=== PATIENT | female | born 1990 | race African-American/Black ===

== ENCOUNTER 2016-12-28 03:17 | Emergency (ER) | payer MEDICAID ==
[~2016-12-28] VITALS: Ht 160 cm; Wt 75.0 kg
[~2016-12-28 03:17] MED LIST: PRED20 PO
[2016-12-28 03:20] VITALS: BP 133/88; PULSE 93; RESP 16; TEMP 98.3; O2SAT 95
--- NOTE | 2016-12-28 03:51 | PD ---
HPI Chief Complaint: ENT Complaint Time Seen by Provider: 03:46 Travel History International Travel<30 days: No Contact w/Intl Traveler<30days: No Traveled to known affect area: No History of Present Illness HPI 26-year-old black female presents to emergency department with complains of sore throat and blisters in her mouth for the past 3 days. She states that she is concerned that she may have contracted an infection after performing oral intercourse this past week. She also states that she had strained her right shoulder lifting her child up earlier this weekend as well. She states that she had thrashed about and pulled her right shoulder. The patient does admit to subjective fever and chills, sore throat, slight congestion and cough. No nausea vomiting. No bowel pain or diarrhea. No dysuria or frequency. No rashes or lesions. PFSH Past Medical History Blood Disorders: No Anxiety: No Depression: No Cardiovascular Problems: No Diminished Hearing: No Genitourinary: No Herniated Disk: Yes (X2) Musculoskeletal: No Neurologic: No Psychiatric: No Respiratory: No Immunizations Current: Yes Sickle Cell Disease: No Tetanus Vaccination: < 5 Years ?: Not LMP: CONTROL : 6 Para: 2 Miscarriage: 2 : 2 Past Surgical History Section: Yes Other Surgery: Yes (abortions) Social History Alcohol Use: Yes (social) Tobacco Use: Yes (1/2 pack per day) Substance Use: No Allergies-Medications (Allergen,Severity, Reaction): Coded Allergies: No Known Allergies (Verified , 12/28/16) Reported Meds & Prescriptions Reported Meds & Active Scripts Active Diclofenac Sodium DR (Diclofenac Sodium) 50 Mg Tabdr 50 Mg PO TID Review of Systems Except as stated in HPI: all other systems reviewed are Neg Physical Exam Narrative GENERAL: Well-developed, well-nourished in no acute distress. Nontoxic appearing. HEAD: Normocephalic, atraumatic. EYES: Pupils equal round and reactive. Extraocular motions intact. No scleral icterus. No injection or drainage. ENT: TMs clear without erythema. The external auditory canals clear. Nose: clear . Posterior pharynx is mildly erythematous and moist. No tonsillar edema or exudate. Patient has a few small superficial ulcerations on the buccal mucosa of the mouth. Uvula midline. Airway patent. NECK: Trachea midline.Supple, nontender, moves head freely. No central bony tenderness or spasm. CARDIOVASCULAR: Regular rate and rhythm without murmurs, gallops, or rubs. RESPIRATORY: Clear to auscultation. Breath sounds equal bilaterally. No wheezes , rales, or rhonchi. GASTROINTESTINAL: Abdomen soft, non-tender, nondistended. No hepato-splenomegaly , or palpable masses. No guarding. EXTREMITIES: No clubbing, cyanosis, or edema. Complains of tenderness in the right shoulder. Decreased active range of motion. Full passive range of motion. Negative drop test, no effusion, or edema noted. No pain in the elbow , wrist or hand. Median/ulnar/renal nerves intact. BACK: Nontender without deformity or crepitance. No flank tenderness. Data Data Last Documented VS Vital Signs Date Time Temp Pulse Resp B/P Pulse Ox O2 Delivery O2 Flow Rate FiO2 12/28/16 03:20 98.3 93 16 133/88 95 Room Air Orders Group A Rapid Strep Screen (12/28/16 03:32) Strep Culture (Group A) (12/28/16 03:35) Shoulder, Limited(2vws) (12/28/16 04:00) Ketorolac Inj (Toradol Inj) (12/28/16 04:00) MDM Medical Decision Making Medical Screen Exam Complete: Yes Emergency Medical Condition: Yes Medical Record Reviewed: Yes Interpretation(s) Right shoulder: Negative for acute bony injury Rapid strep: Negative Differential Diagnosis MDM: High Differential diagnoses: Strep throat, viral pharyngitis, mono, right shoulder strain, tendinitis Narrative Course X-ray of the shoulder is negative. Rapid strep is negative. Patient is given diclofenac for pain. This is URI, right shoulder strain Diagnosis Primary Impression: URI (upper respiratory infection) Qualified Code: J06.9 - Viral upper respiratory tract infection Additional Impression: Right shoulder strain Qualified Code: S46.911A - Right shoulder strain, initial encounter Patient Instructions: General Instructions Additional Instructions: Rest. Force fluids. Saltwater gargles. Diclofenac. Chloraseptic [place] Cepastat lozenge. Follow-up with a primary care doctor in one week. Return to the ER if any problems. Med/Other Pt SpecificInfo: Prescription(s) given Scripts Diclofenac Sodium DR 50 Mg Tabdr50 Mg PO TID #21 TAB Prov:Hailey Mancuso MD 12/28/16 Disposition: 01 DISCHARGE HOME Condition: Stable Wade Draek Dec 28, 2016 03:51
[2016-12-28] MEDS ORDERED: DICL50TA3 PO (03:52)
[2016-12-28] MEDS ORDERED: KETOROLAC TROMETHAMINE 60 MG/2 ML (IM) VIAL IM ONE (04:00)
--- NOTE | 2016-12-28 04:28 | RADRPT ---
EXAM DATE/TIME: 12/28/2016 04:14 [facility] COMPARISON: No previous studies available for comparison. INDICATIONS : Right shoulder pain. MEDICAL HISTORY : None. SURGICAL HISTORY : None. ENCOUNTER: Initial ACUITY: 1 day PAIN SCORE: 7/10 LOCATION: Right shoulder FINDINGS: Two view examination of the right shoulder demonstrates no evidence of fracture or dislocation. The glenohumeral and acromioclavicular joints are maintained. Bony mineralization is normal. CONCLUSION: Normal 2 view radiographic appearance of the right shoulder. James Mattson MD on December 28, 2016 at 4:26 Board Certified Radiologist. This report was verified electronically.
== END 2016-12-28 04:42 | disposition home or self-care (01) ==
LOC: NEPB 03:17
DX: J06.9 Acute upper respiratory infection, unspecified (principal); S46.911A Strain of unspecified muscle, fascia and tendon at shoulder and upper arm level, right arm, initial encounter; F17.210 Nicotine dependence, cigarettes, uncomplicated; X50.1XXA Overexertion from prolonged static or awkward postures, initial encounter; Y93.F2 Activity, caregiving, lifting
CPT/HCPCS: 73030; 87081; 87880; 96372; 99283; J1885

== ENCOUNTER 2018-01-25 12:40 | Emergency (ER) | payer MEDICAID ==
[~2018-01-25] VITALS: Ht 160 cm; Wt 74.0 kg
[~2018-01-25 12:40] MED LIST changes: +DICL50TA3 PO; -PRED20 PO
[2018-01-25 13:06] VITALS: BP 104/54; PULSE 95; RESP 18; TEMP 98.3; O2SAT 98
[2018-01-25] MEDS ORDERED: ZITHTAB PO (13:20)
--- NOTE | 2018-01-25 13:21 | PD ---
HPI Chief Complaint: Cold / Flu Symptoms Time Seen by Provider: 13:10 Travel History International Travel<30 days: No Contact w/Intl Traveler<30days: No Traveled to known affect area: No History of Present Illness HPI 27-year-old female presents to the emergency department for evaluation of productive cough, congestion for one week. Patient states she has had intermittent fevers. She did check her fever on Tuesday and she states she had a 101 fever. She has had some intermittent subjective fever since. No fever at this time. Patient reports being 3 months . She denies any issues with the . No vaginal bleeding or discharge. She follows with a direct entry midwife. Patient denies having any chronic medical problems or taking any prescribed medications. No exacerbating or alleviating factors. Moderate severity. PFSH Past Medical History Blood Disorders: No Anxiety: No Depression: No Cardiovascular Problems: No Diminished Hearing: No Genitourinary: No Herniated Disk: Yes (X2) Musculoskeletal: No Neurologic: No Psychiatric: No Respiratory: No Immunizations Current: Yes Sickle Cell Disease: No : 6 Para: 2 Miscarriage: 2 : 2 Past Surgical History Section: Yes Other Surgery: Yes (abortions) Social History Alcohol Use: Yes (social) Tobacco Use: Yes (1/2 pack per day) Substance Use: No Allergies-Medications (Allergen,Severity, Reaction): Coded Allergies: No Known Allergies (Verified Adverse Reaction, Unknown, 01/25/18) Reported Meds & Prescriptions Reported Meds & Active Scripts Active Diclofenac Sodium DR (Diclofenac Sodium) 50 Mg Tabdr 50 Mg PO TID Review of Systems Except as stated in HPI: all other systems reviewed are Neg Physical Exam Narrative GENERAL: Well-nourished, well-developed female patient, ambulatory. Afebrile. SKIN: Focused skin assessment warm/dry. HEAD: Normocephalic. Atraumatic. EYES: No scleral icterus. No injection or drainage. NECK: Supple, trachea midline. No JVD or lymphadenopathy. CARDIOVASCULAR: Regular rate and rhythm without murmurs, gallops, or rubs. RESPIRATORY: Breath sounds equal bilaterally. No accessory muscle use. Lungs sounds are clear to auscultation. GASTROINTESTINAL: Abdomen soft, non-tender, nondistended. MUSCULOSKELETAL: No cyanosis, or edema. BACK: Nontender without obvious deformity. No CVA tenderness. Data Data Last Documented VS Vital Signs Date Time Temp Pulse Resp B/P (MAP) Pulse Ox O2 Delivery O2 Flow Rate FiO2 01/25/18 13:06 98.3 95 18 104/54 (71) 98 MDM Medical Decision Making Medical Screen Exam Complete: Yes Emergency Medical Condition: Yes Medical Record Reviewed: Yes Differential Diagnosis URI versus bronchitis versus pneumonia Narrative Course 27-year-old female presents to the emergency department for evaluation of cold symptoms for one week. She does appear well and exam. Patient states she was taking ibuprofen at home. She is instructed to discontinue taking ibuprofen due to . She is to take Tylenol every 4 hours as needed, use saline nasal sprays. I'll give her prescription for azithromycin for URI. She is to follow-up with her primary care physician. She is return here for any acute worsening of symptoms. The patient was discharged in stable condition with instructions, including return instructions and follow up instructions. Diagnosis Primary Impression: URI (upper respiratory infection) Qualified Codes: J06.9 - Acute upper respiratory infection, unspecified Referrals: Primary Care Physician call for appointment Patient Instructions: General Instructions, Upper Respiratory Infection (ED) Departure Forms: Tests/Procedures, Work Release Enter return to work date: Jan 27, 2018 Additional Instructions: [id number] Tylenol every 4 hours as needed. Use saline nasal sprays for nasal congestion. Take antibiotic as directed until gone. Follow-up with your primary care physician. Return to the emergency department for any acute worsening of symptoms. Med/Other Pt SpecificInfo: Prescription(s) given Scripts Azithromycin (Zithromax Z-Hermelindo) 250 Mg Dspk 250 MG PO DIRECTED for Infection, #1 DSPK 0 Refills 500 MG (2 tabs) day 1, then 1 tab days 2-5. Prov: Nati Bhardwaj 01/25/18 Disposition: 01 DISCHARGE HOME Condition: Stable Nati Bhardwaj Jan 25, 2018 13:21
== END 2018-01-25 13:30 | disposition home or self-care (01) ==
LOC: NEPK 12:40
DX: O98.911 Unspecified maternal infectious and parasitic disease complicating pregnancy, first trimester (principal); J06.9 Acute upper respiratory infection, unspecified; F17.210 Nicotine dependence, cigarettes, uncomplicated
CPT/HCPCS: 99283

== ENCOUNTER 2018-04-26 08:58 | Emergency (ER) | payer SELFPAY ==
[~2018-04-26] VITALS: Ht 160 cm; Wt 72.6 kg
[~2018-04-26 08:58] MED LIST changes: -DICL50TA3 PO; +ZITHTAB PO
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
[2018-04-26] MEDS ORDERED: ACETAMINOPHEN 325 MG TAB PO ONE (10:30)
== END 2018-04-26 11:28 | disposition home or self-care (01) ==
LOC: HOBED 08:58
DX: O26.893 Other specified pregnancy related conditions, third trimester (principal); R51 Headache; R10.9 Unspecified abdominal pain; O99.333 Smoking (tobacco) complicating pregnancy, third trimester; F17.210 Nicotine dependence, cigarettes, uncomplicated; O99.323 Drug use complicating pregnancy, third trimester; F12.90 Cannabis use, unspecified, uncomplicated; Z3A.30 30 weeks gestation of pregnancy
CPT/HCPCS: 99284

== ENCOUNTER 2018-07-01 07:19 | Inpatient (IN) ==
[2018-07-01] MEDS ORDERED: Sod Chloride 0.9% Inj 1,000 ML IV.CONT PRN (08:05)
[2018-07-01] MEDS ORDERED: Naloxone Inj 0.4 MG/ML Vial IV.PUSH PRN ×2 (08:05→14:36)
[2018-07-01] MEDS ORDERED: fentaNYL Citrate Inj 100 MCG/2 ML Ampul IV.PUSH PRN ×2 (08:05)
[2018-07-01] MEDS ORDERED: Sodium Chlor 0.9% Inj 500 ML IV.SIG PRN (08:05)
[2018-07-01] MEDS ORDERED: Oxytocin 30 Units/500ml Premix 30 UNITS/500 ML BAG IV.SIG ONE (08:05)
--- NOTE | 2018-07-01 08:13 | P.HPOB ---
History of Present Illness Primary Care Physician: YADIRA Jen Helio Chief Complaint: Contractions spotting History of Present Illness: Patient is 28-year-old black female previous at 39 weeks presents complaining of contractions since early this morning and some spotting. The NST is reactive and she is jose a every 2-3 minutes. She is also dilated on admission 6-7 cm 80% and -1 station with a bulging bag and vertex presentation, she was scheduled for repeat next Tuesday but does not she is advanced dilation in active labor now encouraged for delivery Weeks Gestation:: 39 Para: 2 : 3 Review of Systems Constitutional: Denies anorexia, Denies body ache(s), Denies chills, Denies daytime sleepiness, Denies excessive sweating, Denies fatigue, Denies fever(s), Denies headache(s), Denies increased appetite, Denies lack of energy, Denies malaise, Denies night sweats, Denies weakness, Denies weight gain, Denies weight loss, Denies other Cardiovascular: Denies bluish discoloration of hand/feet, Denies chest pain, Denies chest pain at rest, Denies chest pain with activity, Denies excessive sweating, Denies fainting, Denies fast heart rate, Denies foot swelling, Denies generalized swelling, Denies irregular heart rhythm, Denies leg pain with activity, Denies leg sores, Denies leg swelling, Denies lightheadedness, Denies radiating jaw, neck or arm pain, Denies rapid, pounding, or irregular heartbeat , Denies shortness of breath, Denies shortness of breath with activity, Denies shortness of breath when lying down, Denies shortness of breath causing sudden awakening, Denies slow heart rate, Denies other Respiratory: Denies change in phlegm color, Denies chest congestion, Denies cough, Denies coughing up blood, Denies excessive phlegm production, Denies pain on inspiration, Denies pain with cough, Denies shortness of breath, Denies shortness of breath with activity, Denies snoring, Denies stridor, Denies wheezing, Denies other Gastrointestinal: Denies abdominal pain, Denies belching, Denies black, tarry stools, Denies bloating, Denies bright, red blood in stools, Denies change in bowel habits, Denies constant urge to pass stool, Denies change in stools, Denies coffee ground vomit, Denies constipation, Denies cramping, Denies difficulty swallowing, Denies excessive passing of gas, Denies feeling full early, Denies heartburn, Denies incontinent of stools, Denies loose stools, Denies nausea, Denies pain with swallowing, Denies vomiting, Denies vomiting blood, Denies other Genitourinary: Denies abnormal periods, Denies abnormal vaginal bleeding, Denies absent period, Denies bleeding between periods, Denies blood in urine, Denies difficulty starting urination, Denies difficulty urinating, Denies dribbling after urination, Denies frequent nighttime urination, Denies genital itching, Denies genital lesions, Denies heavy periods, Denies hot flashes, Denies light periods, Denies nipple discharge, Denies painful intercourse, Denies painful periods, Denies painful urination, Denies pelvic pain, Denies prolapse symptoms, Denies sexual problems, Denies side pain, Denies urinary incontinence, Denies urinary urgency, Denies vaginal discharge, Denies vaginal dryness, Denies vaginal odor, Denies vaginal itching, Denies other Neurologic: Denies abnormal hearing, Denies abnormal movements, Denies abnormal speech, Denies abnormal walking, Denies behavioral changes, Denies burning sensations, Denies confusion, Denies dizziness, Denies fainting, Denies frequent falls, Denies headache(s), Denies lack of coordination, Denies localized weakness, Denies loss of vision, Denies memory loss, Denies numbness, Denies other visual disturbances, Denies radiating pain, Denies restless legs, Denies convulsions, Denies seizure-like activity, Denies sensory deficit, Denies tingling, Denies tingling/numbness/burning sensations, Denies tremor(s), Denies unsteadiness, Denies weakness, Denies other PMFSH - History History Provided By: Patient - Medical History Medical History: Medical History (Last Updated 06/30/18 @ 06:36 by Job Denton MD) HSV (herpes simplex virus) anogenital infection - Surgical History Surgical History: Surgical History (Last Updated 06/30/18 @ 06:36 by Job Denton MD) History of delivery - Tobacco History Second Hand Smoke Exposure: Yes Tobacco Use In Past 30 Days: Yes Smoking Status: Current every day smoker Tobacco Type: Cigarettes - Alcohol History How Often Do You Have a Drink Containing Alcohol: Never - Substance Use History Substance History: Active Abuse (cannabis) - Travel History Recent Travel in the [place] Within the Last 8 Weeks: No Recent Travel Out of the Country Within the Last 8 Weeks: No - Immunization History Tetanus Immunization: <5 Years Hx Influenza Vaccine This Season: No Medications and Allergies Active Medications: Active Medications Citric Acid/Sodium Citrate (Sodium Citrate/Citric Acid Liq) 30 ml PO ENVIRONMENTAL HEALTH PHYSICIAN [facility] Stop: 07/05/18 08:14 Fentanyl Citrate (Fentanyl Inj) 100 mcg IV.PUSH Q1H PRN PRN Reason: PAIN SCALE 6 TO 10 Fentanyl Citrate (Fentanyl Inj) 50 mcg IV.PUSH Q1H PRN PRN Reason: Pain Scale 3 - 5 Lactated Ringer's (Lr 1000 Ml Inj) 1,000 mls @ 125 mls/hr IV.CONT .Q8H SAUL Lactated Ringer's (Lr 1000 Ml Inj) 1,000 mls @ 3,000 mls/hr IV.SIG UNSCH PRN PRN Reason: compromise or epidural Sodium Chloride (Ns Inj) 500 mls @ 1,000 mls/hr IV.SIG UNSCH PRN PRN Reason: SEE LABEL COMMENTS Sodium Chloride (Ns Inj) 1,000 mls @ 100 mls/hr IV.CONT .Q10H PRN PRN Reason: SEE LABEL COMMENTS Oxytocin (Pitocin 30 Units/Ns 500 Ml Premix) 30 units in 500 mls @ 999 mls/hr IV.SIG BOLUS ONE Stop: 07/01/18 08:35 Lidocaine HCl (Xylocaine 1% Inj) 0.1 ml I-DERMAL PRN PRN PRN Reason: For IV start Stop: 07/04/18 08:04 Lidocaine HCl (Xylocaine 1% Inj) 10 ml INFILTRATN PRN PRN PRN Reason: For episiotomy repair Stop: 07/03/18 08:04 Mineral Oil (Muri-Lube Oil) 10 ml TOPICAL PRN PRN PRN Reason: PRN perineal massage Naloxone HCl (Narcan Inj) 0.1 mg IV.PUSH Q2M PRN PRN Reason: for opiate reversal Allergies Allergy/AdvReac Type Severity Reaction Status Date / Time No Known Allergies Allergy Verified 07/01/18 07:30 Exam Vital signs: Vital Signs 07/01/18 07:33 Temperature 97.8 F Pulse Rate 95 H Blood Pressure 129/89 Intake & Output 06/30/18 07/01/18 07/01/18 18:59 06:59 18:59 Weight 68 kg - Constitutional mild distress - Routine HEENT Exam Head: Present: normocephalic, atraumatic Eye: Present: PERRL - Routine Neck Exam Present: supple, full ROM - Routine Respiratory Exam Present: CTA bilaterally - Routine Cardiovascular Exam Present: RRR - Routine Exam Comments: Cervix is 6-7/80/-1/cephalic with bulging membranes - Routine Neurological Exam Present: alert, oriented X3, CN II-XII intact Caprini VTE Risk Assessment Caprini VTE Risk Assessment: No/Low Risk (score <= 1) Caprini Risk Assessment Model: Point Value = 1 Point Value = 2 Point Value = 3 Point Value = 5 Age 41-60 Minor surgery BMI > 25 kg/m2 Swollen legs Varicose veins or History of unexplained or recurrent spontaneous Oral contraceptives or hormone replacement Sepsis (< 1 month) Serious lung disease, including pneumonia (< 1 month) Abnormal pulmonary function Acute myocardial infarction Congestive heart failure (< 1 month) History of inflammatory bowel disease Medical patient at bed rest Age 61-74 Arthroscopic surgery Major open surgery (> 45 min) Laparoscopic surgery (> 45 min) Malignancy Confined to bed (> 72 hours) Immobilizing plaster cast Central venous access Age >= 75 History of VTE Family history of VTE Factor V Leiden Prothrombin [id number] Lupus anticoagulant Anticardiolipin antibodies Elevated serum homocysteine Heparin-induced thrombocytopenia Other congenital or acquired thrombophilia Stroke (< 1 month) Elective arthroplasty Hip, pelvis, or leg fracture Acute spinal cord injury (< 1 month) Prophylaxis Regimen: Total Risk Factor Score Risk Level Prophylaxis Regimen 0-1 Low Early ambulation 2 Moderate Order ONE of the following: *Sequential Compression Device (SCD) *Heparin 5000 units SQ BID 3-4 Higher Order ONE of the following medications: *Heparin 5000 units SQ TID *Enoxaparin/Lovenox 40 mg SQ daily (WT < 150 kg, CrCl > 30 mL/min) *Enoxaparin/Lovenox 30 mg SQ daily (WT < 150 kg, CrCl > 10-29 mL/min) *Enoxaparin/Lovenox 30 mg SQ BID (WT < 150 kg, CrCl > 30 mL/min) AND/OR *Sequential Compression Device (SCD) 5 or more Highest Order ONE of the following medications: *Heparin 5000 units SQ TID (Preferred with Epidurals) *Enoxaparin/Lovenox 40 mg SQ daily (WT < 150 kg, CrCl > 30 mL/min) *Enoxaparin/Lovenox 30 mg SQ daily (WT < 150 kg, CrCl > 10-29 mL/min) *Enoxaparin/Lovenox 30 mg SQ BID (WT < 150 kg, CrCl > 30 mL/min) AND *Sequential Compression Device (SCD) Assessment and Plan - Diagnosis (1) Previous delivery affecting Code(s): O34.219 - Maternal care for unspecified type scar from previous delivery Status: Acute (2) Uterine contractions during Code(s): O62.2 - Other uterine inertia Status: Acute - Plan Patient presenting at term in active labor. She has a history of section with one of her children vaginal delivery with the other. Now at almost 7 cm dilated would recommend that she continue laboring and deliver vaginally with epidural, she understands risks and benefits of delivery and opting to proceed
[2018-07-01] MEDS ORDERED: Citric Acid/Sodium Citrate Liq 30 ML UDC PO SCH (08:15)
[2018-07-01] MEDS ORDERED: fentaNYL 2MCG-Bupiv 0.125% Epi 150 ML EPIDURAL ONE (08:26)
[2018-07-01 08:38] LABS: Eos # (Auto) 0.1 th/mm3 (0.0-0.4); Hematocrit 30.7 % (35.0-46.0); Hemoglobin 10.4 gm/dL (11.6-15.3); Lymph # (Auto) 1.4 th/mm3 (1.0-4.8); Lymph % (Auto) 11.8 % (9.0-44.0); Mean Corpuscular Hemoglobin 28.6 pg (27.0-34.0); Mean Corpuscular Volume 84.1 fL (80.0-100.0); Mean Platelet Volume 11.4 fL (7.0-11.0); Mono # (Auto) 0.7 th/mm3 (0.0-0.9); Mono % (Auto) 6.3 % (0.0-8.0); Neut # (Auto) 9.6 th/mm3 (1.8-7.7); Neut % (Auto) 80.9 % (16.0-70.0); Platelet Count 103 th/mm3 (150-450); Red Blood Count 3.65 mil/mm3 (4.00-5.30); Red Cell Distribution Width 14.3 % (11.6-17.2); White Blood Count 11.8 th/mm3 (4.0-11.0)
[2018-07-01 08:49] LABS: Amphetamine Urine With Conf Neg (Neg); Benzodiazepine Urine With Conf Neg (Neg)
[2018-07-01 09:12] LABS: Amorphous Sediment,Urine Rare /hpf; Bilirubin,Urine Negative (Negative); Clarity,Urine Hazy (Clear); Color,Urine Yellow (Yellw/Straw); Glucose,Urine (UA) Negative (Negative); Leukocyte Esterase,Urine Negative (Negative); Mucus,Urine Few /lpf (Occasional); Nitrite,Urine Negative (Negative); Squamous Epithelial Cell,Urine 2 /hpf (0-5)
[2018-07-01] MEDS ORDERED: fentaNYL 2MCG-Bupiv 0.125% Epi 150 ML EPIDURAL PRN (09:45)
[2018-07-01] MEDS ORDERED: fentaNYL Citrate Inj 100 MCG/2 ML Ampul EPIDURAL ONE (09:45)
[2018-07-01 10:05] LABS: Albumin 2.7 g/dL (3.4-5.0); Anion Gap 10 meq/L (5-15); Aspartate Aminotransferase 15 U/L (15-37); Blood Urea Nitrogen 5 mg/dL (7-18); Calcium 9.2 mg/dL (8.5-10.1); Carbon Dioxide 21.8 meq/L (21.0-32.0); Chloride 107 meq/L (98-107); Glomerular Filtration Rate Greater Than 89 mL/min (>89); Glucose,Random 90 mg/dL (74-106); Potassium 3.9 meq/L (3.5-5.1); Sodium 139 meq/L (136-145)
[2018-07-01 10:07] LABS: Alanine Aminotransferase 12 U/L (10-53)
[2018-07-01 10:08] LABS: Alkaline Phosphatase 107 U/L (45-117); Total Protein 6.8 g/dL (6.4-8.2)
--- NOTE | 2018-07-01 11:33 | P.OBLABOR ---
Subjective Interval history: Patient states she is feeling some pressure below. Pain is tolerable. Objective Vital Signs: Vital Signs - 8 hr 07/01/18 07:33 07/01/18 08:37 07/01/18 09:15 Temperature 97.8 F Pulse Rate 95 H 82 86 Respiratory Rate Blood Pressure 129/89 131/81 127/82 07/01/18 09:19 07/01/18 09:21 07/01/18 09:30 Temperature Pulse Rate 95 H 86 93 H Respiratory Rate Blood Pressure 124/69 116/63 133/77 07/01/18 09:31 07/01/18 09:35 07/01/18 09:40 Temperature Pulse Rate 80 77 99 H Respiratory Rate Blood Pressure 125/63 123/77 128/76 07/01/18 09:50 07/01/18 10:30 07/01/18 10:35 Temperature 98.5 F Pulse Rate 82 82 Respiratory Rate 17 Blood Pressure 122/76 126/77 07/01/18 11:01 Temperature Pulse Rate 78 Respiratory Rate Blood Pressure 110/64 Objective: Pelvic Exam: Cervix: midposition Dilatation: 8 Effacement: 80% Station:-1 Presentation: vertex Membranes:ruptured Uterine Contractions: every 5 min FHT's: Category: 1 Baseline: 135 Reactive: yes Variability: moderate Decels: none Assessment and Plan - Diagnosis (1) Uterine contractions during Code(s): O62.2 - Other uterine inertia Status: Acute Plan: 28 year old at 39/3 in labor -AROM at 9:30 am -11:30 cervical check 8, 80%, -1 -Continue to monitor for labor
[2018-07-01] MEDS ORDERED: Bisacodyl 10 MG Supp RECTAL PRN (14:36)
[2018-07-01] MEDS ORDERED: Benzocaine 20% Top Spray 60 ML Can TOPICAL PRN (14:36)
[2018-07-01] MEDS ORDERED: Zolpidem Tartrate 5 MG Tablet PO PRN (14:36)
[2018-07-01] MEDS ORDERED: Witch Hazel 50%/Glyderin 12.5% 40 Pad Jar RECTAL PRN (14:36)
--- NOTE | 2018-07-01 14:44 | P.OBDELI ---
Weeks Gestation: 39 Medical Induction of Labor: No Artificial Rupture of Membrane: Yes Vaginal Delivery: Normal Presentation: Occiput anterior Nuchal Cord: None Delayed Cord Clamping (45 sec): Yes Placenta: Spontaneous delivery Laceration: 2 deg Repair: Vicryl running Estimated blood loss (mL): 250 : Male Male A Infant Delivery Date: 07/01/18 Delivery Time: 14:23 Weight: 3305 kg score (1 min): 8 score (5 min): 9 Additional Information: Head delivered by maternal effort. No nuchal cord appreciated. Anterior shoulder delivered without complication. Placenta delivered without complication. 2 degree perineal repair with running 3.0 Vicryl.
[2018-07-01] MEDS ORDERED: Oxytocin 30 Units/500ml Premix 30 UNITS/500 ML BAG IV.CONT SCH (14:45)
[2018-07-01] MEDS ORDERED: Diphtheria/Tetanus/Pertussis Vaccine Inj 0.5 ML Syringe IM ONE (16:00)
[2018-07-01] MEDS ORDERED: Measles/Mumps/Rubella Vaccine Inj 0.5 ML Vial SQ ONE (16:00)
[2018-07-01] MEDS: Acetaminophen 325 MG Tablet PO PRN ×2 (16:26→19:52)
[2018-07-01] MEDS: Ibuprofen 400 MG Tablet PO PRN (19:50)
[2018-07-01] MEDS: Senna/Docusate Sodium 8.6/50 MG Tablet PO SCH (21:10)
[2018-07-02] MEDS: Acetaminophen 325 MG Tablet PO PRN ×3 (01:45→10:39)
[2018-07-02] MEDS: Ibuprofen 400 MG Tablet PO PRN (06:09)
--- NOTE | 2018-07-02 06:35 | P.PNOB ---
Subjective Post day: 1 Interval history: Patient is a 28-year-old delivered at 39 weeks and 3 days. Patient is day 1 after . Patient's pain is well-controlled. Patient reports eating and drinking without any nausea or vomiting. Patient reports minimal bleeding. Patient has passed gas but no bowel movements. Patient is walking without lower extremity pain or shortness of breath. Patient reports desire for contraception is depo and bottle feeding. Objective Vital Signs/I&O: Vital Signs 07/01/18 07:33 07/01/18 08:37 07/01/18 09:15 Temperature 97.8 F Pulse Rate 95 H 82 86 Respiratory Rate Blood Pressure 129/89 131/81 127/82 07/01/18 09:19 07/01/18 09:21 07/01/18 09:30 Temperature Pulse Rate 95 H 86 93 H Respiratory Rate Blood Pressure 124/69 116/63 133/77 07/01/18 09:31 07/01/18 09:35 07/01/18 09:40 Temperature Pulse Rate 80 77 99 H Respiratory Rate Blood Pressure 125/63 123/77 128/76 07/01/18 09:50 07/01/18 10:30 07/01/18 10:35 Temperature 98.5 F Pulse Rate 82 82 Respiratory Rate 17 Blood Pressure 122/76 126/77 07/01/18 11:01 07/01/18 11:30 07/01/18 12:40 Temperature 98.2 F Pulse Rate 78 81 83 Respiratory Rate 16 Blood Pressure 110/64 120/77 115/76 07/01/18 13:00 07/01/18 14:00 07/01/18 14:26 Temperature 99.8 F H Pulse Rate 89 87 93 H Respiratory Rate Blood Pressure 105/82 124/79 113/91 H 07/01/18 14:31 07/01/18 14:32 07/01/18 14:46 Temperature Pulse Rate 107 H 91 H Respiratory Rate 18 17 Blood Pressure 136/51 L 130/90 07/01/18 15:05 07/01/18 15:15 07/01/18 15:30 Temperature Pulse Rate 86 84 87 Respiratory Rate 17 Blood Pressure 132/77 125/72 126/75 07/01/18 15:31 07/01/18 16:01 07/01/18 17:05 Temperature 100.1 F H 98.0 F Pulse Rate 83 83 Respiratory Rate 18 Blood Pressure 128/77 115/68 07/01/18 20:15 07/01/18 20:40 07/02/18 03:30 Temperature 98.1 F Pulse Rate 81 Respiratory Rate 18 Blood Pressure 124/73 Intake & Output 07/01/18 07/01/18 07/02/18 06:59 18:59 06:59 Weight 68 kg Result Diagrams: 07/01/18 08:15 07/01/18 08:15 Objective Remarks: GENERAL: Well-nourished, well-developed patient. CARDIOVASCULAR: Regular rate and rhythm without murmurs, gallops, or rubs. RESPIRATORY: Breath sounds equal bilaterally. No accessory muscle use. ABDOMEN/GI: Abdomen soft, non-tender. Fundus: Firm, non-tender at umbilicus. GENITOURINARY: Light to moderate bleeding. EXTREMITIES: No cyanosis or edema, non-tender, without signs of DVT. Medications and IVs: Active Medications Acetaminophen (Tylenol) 650 mg PO Q4H PRN PRN Reason: PAIN SCALE 1 TO 2 Last Admin: 07/02/18 06:08 Dose: 650 mg Al Hydroxide/Mg Hydroxide (Milk Of Magnesia Liq) 30 ml PO Q12H PRN PRN Reason: Mild Constipation Benzocaine (Americaine 20% Top [place]) 1 spray TOPICAL Q4H PRN PRN Reason: For Perineum Discomfort Last Admin: 07/01/18 19:50 Dose: 1 spray Bisacodyl (Dulcolax Supp) 10 mg RECTAL DAILY PRN PRN Reason: SEVERE CONSITIPATION Ephedrine Sulfate (Ephedrine/Ns Syringe) 10 mg IV.PUSH UNSCH PRN PRN Reason: SEE LABEL COMMENTS Stop: 07/02/18 09:45 Fentanyl/Bupivacaine/Sodium Chlor (Fentanyl 2 Mcg-Bupiv 0.125% Epi) 150 mls @ 10 mls/hr EPIDURAL PRN PRN PRN Reason: for Labor Pain Ibuprofen (Motrin) 800 mg PO Q8H PRN PRN Reason: For cramping Last Admin: 07/02/18 06:09 Dose: 800 mg Lactulose (Lactulose Liq) 30 ml PO DAILY PRN PRN Reason: SEVERE CONSITIPATION Miscellaneous Information (Misc Information) 1 each OTHER UNSCH PRN PRN Reason: SEE LABEL COMMENTS Stop: 07/02/18 09:45 Miscellaneous Information (Misc Information) 1 each OTHER UNSCH PRN PRN Reason: SEE LABEL COMMENTS Stop: 07/02/18 09:45 Naloxone HCl (Narcan Inj) 0.1 mg IV.PUSH Q2M PRN PRN Reason: for opiate reversal Ondansetron HCl (Zofran Odt) 4 mg PO Q6H PRN PRN Reason: NAUSEA OR VOMITING Senna/Docusate Sodium (Shilpa-Colace) 1 tab PO BID SAUL Last Admin: 07/01/18 21:10 Dose: Not Given Sennosides (Senokot) 17.2 mg PO Q12H PRN PRN Reason: Moderate Constipation Sodium Chloride (Ns Flush) 2 ml IV.FLUSH BID SAUL Sodium Chloride (Ns Flush) 2 ml IV.FLUSH PRN PRN PRN Reason: FLUSH AFTER USING IV ACCESS Witch Crorine/Glycerin (Tucks Pads) 1 applicatio RECTAL QID PRN PRN Reason: HEMORRHOIDS Last Admin: 07/01/18 19:50 Dose: 1 applicatio Zolpidem Tartrate (Ambien) 5 mg PO HS PRN PRN Reason: SLEEP Assessment and Plan - Diagnosis (1) Uterine contractions during Code(s): O62.2 - Other uterine inertia Status: Acute Plan: Patient is a 28-year-old delivered at 39 weeks and 3 days. Patient is day 1 after . Patient was counseled to do 6 weeks of pelvic rest. Patient was counseled to follow up in 6 weeks. Patient requested contraception. --AF VSS --Continue routine care --Motrin and Tylenol when necessary for pain --Encourage OOB --Pelvic rest for 6 weeks will need follow-up appointment at that time. --Contraception: depo --Anticipate discharge tomorrow possibly today
[2018-07-02] MEDS: Senna/Docusate Sodium 8.6/50 MG Tablet PO SCH (09:06)
[2018-07-04 19:11] VITALS: BP 117/68; PULSE 65; TEMP 98
[2018-07-04 19:23] VITALS: RESP 20
== END 2018-07-02 18:54 | disposition home or self-care (01) ==
LOC: HOBED 07:19 → H2E 07:45 → H1EA 16:51
PROVIDERS: ADMIT Obstetrics & Gynecology Maternal & Fetal Medicine; ATTEND Obstetrics & Gynecology Maternal & Fetal Medicine